=== PATIENT | female | born 1960 | race Caucasian/White ===

== ENCOUNTER 2017-05-17 13:19 | Inpatient (IN) | payer OTHER ==
[~2017-05-17] VITALS: Ht 162.6 cm; Wt 51.1 kg
[2017-05-17] MEDS ORDERED: PROPOFOL 100 ML IV ONE (17:02)
[2017-05-17 17:18] LABS: ABG COLLECTION SITE RIGHT RADIAL; COLLATERAL CIRCULATION TESTING NORMAL
[2017-05-17] MEDS ORDERED: BISACODYL 10 MG SUPP PR PRN (17:30)
[2017-05-17] MEDS ORDERED: POLYETHYLENE GLYCOL 17 GM PACKET PO PRN (17:30)
[2017-05-17] MEDS ORDERED: LABETALOL 5MG/ML, 20ML IVPush PRN (17:30)
[2017-05-17 17:43] VITALS: BP 127/81
[2017-05-17] MEDS ORDERED: PLEASE ENTER ALLERGIES MC SCH ×2 (18:00)
[2017-05-17] MEDS ORDERED: PLEASE ENTER HEIGHT AND WEIGHT MC SCH (18:00)
[2017-05-17 18:15] LABS: BLOOD UREA NITROGEN 10 mg/dL (7-18)
[2017-05-17] MEDS: SODIUM CHLORIDE 0.9% 1,000 ML IV SCH (18:20)
[2017-05-17 18:21] LABS: IS PT STATUS REG ER OR PRE ER? NO
[2017-05-17] MEDS ORDERED: MIDAZOLAM 1 MG/ML, 5ML ONE (18:26)
[2017-05-17] MEDS ORDERED: GADOBUTROL 10 MMOL/10 ML VIAL ONE (19:31)
[2017-05-17] MEDS ORDERED: PROPOFOL 100 ML IV PRN (19:55)
[2017-05-17] MEDS ORDERED: NOREPINEPHRINE 4 MG in SODIUM CHLORIDE 0.9% 246 ML IV PRN (19:55)
[2017-05-17 20:00] VITALS: BP 120/75
[2017-05-17] MEDS ORDERED: DEXTROSE 50%, 50ML SYRINGE IVPush PRN (20:00)
[2017-05-17] MEDS ORDERED: PHARMACY MAY ADJ FOR RENAL FX MC SCH (20:00)
[2017-05-17] MEDS ORDERED: GLUCAGON 1 MG IM PRN (20:00)
[2017-05-17] MEDS ORDERED: ALBUTEROL/IPRATROPIUM 2.5MG/0.5MG, 3 ML INLINE PRN (20:00)
[2017-05-17] MEDS ORDERED: LIDOCAINE-MPF 1%, 2ML ENDO PRN (20:00)
[2017-05-17] MEDS: SODIUM CHLORIDE FLUSH 10ML SYR IVF SCH (21:52)
[2017-05-17] MEDS: SIMVASTATIN 20 MG TABLET PO SCH (21:53)
[2017-05-17] MEDS: FAMOTIDINE 20 MG/2 ML IVPush SCH (22:46)
[2017-05-17 23:59] LABS: IS PT STATUS REG ER OR PRE ER? NO
[2017-05-18] MEDS: SODIUM CHLORIDE 0.9% 1,000 ML IV SCH ×2 (04:27→20:21)
[2017-05-18 05:01] LABS: ASPARTATE AMINO TRANSFERASE 14 U/L (15-37); BLOOD UREA NITROGEN 10 mg/dL (7-18)
[2017-05-18 05:06] LABS: ABG COLLECTION SITE RIGHT RADIAL; COLLATERAL CIRCULATION TESTING NORMAL
[2017-05-18] MEDS ORDERED: PHENYTOIN SODIUM 1,000 MG in SODIUM CHLORIDE 0.9% 80 ML IV ONE (06:00)
[2017-05-18] MEDS ORDERED: FILTER 0.22 MICRON IV ONE (06:30)
[2017-05-18] MEDS ORDERED: MAGNESIUM SULFATE PMX 2GM/50ML 50 ML IV ONE (07:00)
[2017-05-18] MEDS: POTASSIUM CHLORIDE 10% 40 MEQ/30 ML UDC PO SCH ×2 (08:35→20:54)
[2017-05-18] MEDS: SODIUM CHLORIDE FLUSH 10ML SYR IVF SCH ×2 (08:35→20:54)
[2017-05-18] MEDS: FAMOTIDINE 20 MG/2 ML IVPush SCH ×2 (08:56→20:54)
[2017-05-18] MEDS: SIMVASTATIN 20 MG TABLET PO SCH (20:54)
[2017-05-18] MEDS: PHENYTOIN SODIUM 50 MG/ML, 2ML IVPush SCH (20:55)
[2017-05-18] MEDS ORDERED: PHENYTOIN SODIUM 50 MG/ML, 5ML IVPush SCH (21:00)
[2017-05-19 04:43] LABS: BLOOD UREA NITROGEN 10 mg/dL (7-18)
[2017-05-19 04:46] LABS: ASPARTATE AMINO TRANSFERASE 14 U/L (15-37)
[2017-05-19 04:47] LABS: ABG COLLECTION SITE RIGHT RADIAL; COLLATERAL CIRCULATION TESTING NORMAL
[2017-05-19 04:55] VITALS: BP 120/73
[2017-05-19] MEDS ORDERED: POTASSIUM CHLORIDE 40 MEQ in SODIUM CHLORIDE 0.9% 100 ML IV ONE (05:00)
[2017-05-19] MEDS: SODIUM CHLORIDE 0.9% 1,000 ML IV SCH ×2 (06:35→17:39)
[2017-05-19] MEDS: SODIUM CHLORIDE FLUSH 10ML SYR IVF SCH ×2 (09:40→19:56)
[2017-05-19] MEDS: POTASSIUM CHLORIDE 10% 40 MEQ/30 ML UDC PO SCH ×2 (09:40→19:56)
[2017-05-19] MEDS: FAMOTIDINE 20 MG/2 ML IVPush SCH ×2 (09:40→19:57)
[2017-05-19] MEDS: SIMVASTATIN 20 MG TABLET PO SCH (19:56)
[2017-05-19] MEDS: PHENYTOIN SODIUM 50 MG/ML, 2ML IVPush SCH (19:56)
[2017-05-20] MEDS: SODIUM CHLORIDE 0.9% 1,000 ML IV SCH ×2 (04:28→18:00)
[2017-05-20 04:30] LABS: ABG COLLECTION SITE RIGHT RADIAL; COLLATERAL CIRCULATION TESTING NORMAL
[2017-05-20 04:51] VITALS: BP 122/70
[2017-05-20 07:20] LABS: BLOOD UREA NITROGEN 11 mg/dL (7-18)
[2017-05-20] MEDS: FAMOTIDINE 40 MG/5 ML ORAL SUSP NG SCH ×2 (09:59→20:24)
[2017-05-20] MEDS: SODIUM CHLORIDE FLUSH 10ML SYR IVF SCH ×2 (10:01→20:23)
[2017-05-20] MEDS: PHENYTOIN SODIUM 50 MG/ML, 2ML IVPush SCH (20:24)
[2017-05-20] MEDS: SIMVASTATIN 20 MG TABLET PO SCH (20:24)
[2017-05-21] MEDS: SODIUM CHLORIDE 0.9% 1,000 ML IV SCH (01:10)
[2017-05-21 04:07] VITALS: BP 131/63
[2017-05-21 04:18] LABS: ABG COLLECTION SITE NOT DOCUMENTED
[2017-05-21 04:37] LABS: BLOOD UREA NITROGEN 13 mg/dL (7-18)
[2017-05-21] MEDS ORDERED: POTASSIUM CHLORIDE 10% 40 MEQ/30 ML UDC PO ONE (07:00)
[2017-05-21] MEDS: FAMOTIDINE 40 MG/5 ML ORAL SUSP NG SCH ×2 (08:08→21:43)
[2017-05-21] MEDS: SODIUM CHLORIDE FLUSH 10ML SYR IVF SCH ×2 (08:08→21:42)
[2017-05-21] MEDS: PHENYTOIN SODIUM 50 MG/ML, 2ML IVPush SCH (21:42)
[2017-05-21] MEDS: SIMVASTATIN 20 MG TABLET PO SCH (21:43)
[2017-05-22 04:00] VITALS: BP 114/71
[2017-05-22 04:17] LABS: ABG COLLECTION SITE RIGHT RADIAL; COLLATERAL CIRCULATION TESTING NORMAL
[2017-05-22] MEDS: FAMOTIDINE 40 MG/5 ML ORAL SUSP NG SCH ×2 (09:29→21:14)
[2017-05-22] MEDS: SODIUM CHLORIDE FLUSH 10ML SYR IVF SCH ×2 (09:29→21:14)
[2017-05-22] MEDS ORDERED: RACEPINEPHRINE INH 2.25%, 0.5ML ONE (10:06)
[2017-05-22] MEDS ORDERED: DEXAMETHASONE 4 MG/ML, 1ML IVPush STA (10:08)
[2017-05-22 11:35] LABS: BLOOD UREA NITROGEN 15 mg/dL (7-18)
[2017-05-22] MEDS ORDERED: SUCCINYLCHOLINE 20 MG/ML, 10ML ONE (15:57)
[2017-05-22] MEDS ORDERED: MIDAZOLAM 1 MG/ML, 5ML ONE (15:57)
[2017-05-22] MEDS: DEXAMETHASONE 4 MG/ML, 1ML IVPush SCH ×2 (17:25→22:47)
[2017-05-22] MEDS: PHENYTOIN SODIUM 50 MG/ML, 2ML IVPush SCH (21:14)
[2017-05-22] MEDS: SIMVASTATIN 20 MG TABLET PO SCH (21:14)
[2017-05-22] MEDS: SODIUM CHLORIDE 0.9% 1,000 ML IV SCH (22:48)
[2017-05-23 04:00] VITALS: BP 99/57
[2017-05-23 04:14] LABS: ABG COLLECTION SITE RIGHT RADIAL; COLLATERAL CIRCULATION TESTING NORMAL
[2017-05-23] MEDS: DEXAMETHASONE 4 MG/ML, 1ML IVPush SCH ×4 (04:42→22:39)
[2017-05-23 07:59] LABS: BLOOD UREA NITROGEN 15 mg/dL (7-18)
[2017-05-23] MEDS: SODIUM CHLORIDE FLUSH 10ML SYR IVF SCH ×2 (09:53→21:06)
[2017-05-23] MEDS: FAMOTIDINE 40 MG/5 ML ORAL SUSP NG SCH ×2 (09:53→21:07)
[2017-05-23] MEDS: PHENYTOIN SODIUM 50 MG/ML, 2ML IVPush SCH (21:07)
[2017-05-23] MEDS: SIMVASTATIN 20 MG TABLET PO SCH (21:08)
[2017-05-23] MEDS ORDERED: SODIUM CHLORIDE 0.9% 1,000 ML IV ONE (22:00)
[2017-05-24 04:00] VITALS: BP 127/78
[2017-05-24 04:41] LABS: ABG COLLECTION SITE RIGHT RADIAL; COLLATERAL CIRCULATION TESTING NORMAL
[2017-05-24] MEDS: DEXAMETHASONE 4 MG/ML, 1ML IVPush SCH (05:16)
[2017-05-24 07:19] LABS: BLOOD UREA NITROGEN 26 mg/dL (7-18)
[2017-05-24] MEDS: SODIUM CHLORIDE FLUSH 10ML SYR IVF SCH ×2 (09:01→20:57)
[2017-05-24] MEDS: FAMOTIDINE 40 MG/5 ML ORAL SUSP NG SCH ×2 (09:01→20:58)
[2017-05-24] MEDS: SIMVASTATIN 20 MG TABLET PO SCH (20:58)
[2017-05-24] MEDS: PHENYTOIN SODIUM 50 MG/ML, 2ML IVPush SCH (20:59)
[2017-05-25 04:00] VITALS: BP 111/59
[2017-05-25 04:19] LABS: ABG COLLECTION SITE RIGHT RADIAL; COLLATERAL CIRCULATION TESTING NORMAL
[2017-05-25 04:57] LABS: BLOOD UREA NITROGEN 19 mg/dL (7-18)
[2017-05-25] MEDS ORDERED: MIDAZOLAM 1 MG/ML, 5ML ONE ×2 (08:00→15:43)
[2017-05-25] MEDS ORDERED: NORTRIPTYLINE 25 MG CAPSULE ONE (08:00)
[2017-05-25] MEDS: FAMOTIDINE 40 MG/5 ML ORAL SUSP NG SCH ×2 (08:45→20:30)
[2017-05-25] MEDS: SODIUM CHLORIDE FLUSH 10ML SYR IVF SCH ×2 (08:45→20:30)
[2017-05-25] MEDS ORDERED: RACEPINEPHRINE INH 2.25%, 0.5ML ONE (09:28)
[2017-05-25] MEDS ORDERED: RACEPINEPHRINE INH 2.25%, 0.5ML NPPB PRN (10:00)
[2017-05-25] MEDS ORDERED: LORazepam 2 MG/ML, 1ML ONE (10:00)
[2017-05-25] MEDS ORDERED: LORazepam 2 MG/ML, 1ML IVPush ONE (10:30)
[2017-05-25] MEDS ORDERED: RACEPINEPHRINE INH 2.25%, 0.5ML NPPB SCH (11:00)
[2017-05-25] MEDS: DEXAMETHASONE 4 MG/ML, 1ML IVPush SCH ×2 (13:03→18:26)
[2017-05-25] MEDS ORDERED: MIDAZOLAM 1 MG/ML, 2ML IVPush ONE (16:30)
[2017-05-25] MEDS: PHENYTOIN SODIUM 50 MG/ML, 2ML IVPush SCH (20:30)
[2017-05-25] MEDS: SIMVASTATIN 20 MG TABLET PO SCH (20:30)
[2017-05-26] MEDS: DEXAMETHASONE 4 MG/ML, 1ML IVPush SCH ×4 (01:14→19:41)
[2017-05-26] MEDS: FENTANYL PF 100 MCG/2ML IVPush PRN ×3 (01:56→23:00)
[2017-05-26 04:41] LABS: ABG COLLECTION SITE RIGHT RADIAL; COLLATERAL CIRCULATION TESTING NORMAL
[2017-05-26 04:56] VITALS: BP 114/64
[2017-05-26 07:33] LABS: BLOOD UREA NITROGEN 20 mg/dL (7-18)
[2017-05-26] MEDS: SODIUM CHLORIDE FLUSH 10ML SYR IVF SCH ×2 (07:42→21:00)
[2017-05-26] MEDS: FAMOTIDINE 40 MG/5 ML ORAL SUSP NG SCH ×2 (07:42→20:56)
[2017-05-26] MEDS ORDERED: CEFAZOLIN 1,000 MG ONE (15:59)
[2017-05-26] MEDS ORDERED: PROPOFOL 10 MG/ML, 20ML ONE (15:59)
[2017-05-26] MEDS ORDERED: ROCURONIUM 10 MG/ML ONE (15:59)
[2017-05-26] MEDS ORDERED: BUPIVACAINE/PF-EPI 0.5% 1:200K ONE (16:08)
[2017-05-26] MEDS ORDERED: FENTANYL PF 100 MCG/2ML ONE (16:19)
[2017-05-26] MEDS: SIMVASTATIN 20 MG TABLET PO SCH (20:57)
[2017-05-26] MEDS: PHENYTOIN SODIUM 50 MG/ML, 2ML IVPush SCH (20:57)
[2017-05-27] MEDS: DEXAMETHASONE 4 MG/ML, 1ML IVPush SCH ×3 (01:21→18:11)
[2017-05-27] MEDS: FENTANYL PF 100 MCG/2ML IVPush PRN ×4 (02:59→23:08)
[2017-05-27 04:20] VITALS: BP 106/60
[2017-05-27 04:33] LABS: ABG COLLECTION SITE RIGHT RADIAL; COLLATERAL CIRCULATION TESTING NORMAL
[2017-05-27 07:24] LABS: BLOOD UREA NITROGEN 24 mg/dL (7-18)
[2017-05-27] MEDS: FAMOTIDINE 40 MG/5 ML ORAL SUSP NG SCH ×2 (08:51→20:52)
[2017-05-27] MEDS: SODIUM CHLORIDE FLUSH 10ML SYR IVF SCH ×2 (08:51→20:52)
[2017-05-27] MEDS: SIMVASTATIN 20 MG TABLET PO SCH (20:52)
[2017-05-27] MEDS: PHENYTOIN SODIUM 50 MG/ML, 2ML IVPush SCH (20:52)
[2017-05-28 04:34] LABS: ABG COLLECTION SITE RIGHT RADIAL; COLLATERAL CIRCULATION TESTING NORMAL
[2017-05-28 04:39] VITALS: BP 108/86
[2017-05-28 04:40] LABS: BLOOD UREA NITROGEN 24 mg/dL (7-18)
[2017-05-28] MEDS: DEXAMETHASONE 4 MG/ML, 1ML IVPush SCH (07:40)
[2017-05-28] MEDS: FAMOTIDINE 40 MG/5 ML ORAL SUSP NG SCH ×2 (07:40→21:31)
[2017-05-28] MEDS: SODIUM CHLORIDE FLUSH 10ML SYR IVF SCH ×2 (07:40→21:31)
[2017-05-28] MEDS: PHENYTOIN SODIUM 50 MG/ML, 2ML IVPush SCH (21:31)
[2017-05-28] MEDS: SIMVASTATIN 20 MG TABLET PO SCH (21:32)
[2017-05-29 04:32] LABS: BLOOD UREA NITROGEN 22 mg/dL (7-18)
[2017-05-29 04:37] VITALS: BP 124/73
[2017-05-29] MEDS ORDERED: CEFAZOLIN PMX 2GM/50ML 50 ML IVPB ONE ×2 (06:00→14:00)
[2017-05-29] MEDS: SODIUM CHLORIDE FLUSH 10ML SYR IVF SCH ×2 (09:16→21:21)
[2017-05-29] MEDS: FAMOTIDINE 40 MG/5 ML ORAL SUSP NG SCH ×2 (09:16→21:21)
[2017-05-29] MEDS ORDERED: MIDAZOLAM 1 MG/ML, 5ML ONE (10:56)
[2017-05-29] MEDS: SIMVASTATIN 20 MG TABLET PO SCH (21:21)
[2017-05-29] MEDS: PHENYTOIN SODIUM 50 MG/ML, 2ML IVPush SCH (21:21)
[2017-05-30 04:00] VITALS: BP 101/62
[2017-05-30 04:25] LABS: BLOOD UREA NITROGEN 24 mg/dL (7-18)
[2017-05-30] MEDS: ALBUTEROL/IPRATROPIUM 2.5MG/0.5MG, 3 ML INLINE PRN ×2 (06:51→10:30)
[2017-05-30] MEDS: SODIUM CHLORIDE FLUSH 10ML SYR IVF SCH (09:55)
[2017-05-30] MEDS: FAMOTIDINE 40 MG/5 ML ORAL SUSP NG SCH (09:55)
[2017-05-30] MEDS ORDERED: IPRA3AMP INLINE (10:59)
[2017-05-30] MEDS ORDERED: PHEN100C PO (10:59)
[2017-05-30] MEDS ORDERED: SIMV20TA3 PO (10:59)
[2017-05-30] MEDS ORDERED: LIDO10VI34 ENDO (10:59)
[2017-05-30] MEDS ORDERED: FAMO40OR NG (10:59)
== END 2017-05-30 14:19 | DRG 4 ==
LOC: CCU 16:39
PROVIDERS: ADMIT Hospitalist; ATTEND Hospitalist
PROC: 0BH17EZ Insertion of Endotracheal Airway into Trachea, Via Natural or Artificial Opening (ICD-10-PCS; 2017-05-17)
PROC: 5A1955Z Respiratory Ventilation, Greater than 96 Consecutive Hours (ICD-10-PCS; 2017-05-17)
PROC: 0T9B70Z Drainage of Bladder with Drainage Device, Via Natural or Artificial Opening (ICD-10-PCS; 2017-05-17)
PROC: 0B110F4 Bypass Trachea to Cutaneous with Tracheostomy Device, Open Approach (ICD-10-PCS; principal; 2017-05-26 16:00)
PROC: 0DH63UZ Insertion of Feeding Device into Stomach, Percutaneous Approach (ICD-10-PCS; 2017-05-29)
DX: I61.8 Other nontraumatic intracerebral hemorrhage (principal); G93.40 Encephalopathy, unspecified; J96.00 Acute respiratory failure, unspecified whether with hypoxia or hypercapnia; Z99.11 Dependence on respirator [ventilator] status; C53.9 Malignant neoplasm of cervix uteri, unspecified; R23.3 Spontaneous ecchymoses; D64.9 Anemia, unspecified; R13.12 Dysphagia, oropharyngeal phase; K29.70 Gastritis, unspecified, without bleeding; K29.80 Duodenitis without bleeding; Z83.3 Family history of diabetes mellitus; Z82.49 Family history of ischemic heart disease and other diseases of the circulatory system
CPT/HCPCS: 36415; 36600; 70450; 70490; 70546; 70547; 70553; 71010; 80048; 80053; 80061; 80185; 80186; 81001; 82803; 83735; 84439; 84443; 84478; 84484; 85025; 85610; 85651; 87040; 87070; 87081; 87205; 93005; 93306; 94002; 94003; 94150; 94640; 94660; 95816; 95819; 99152; 99153; A9585; B4087; J0690; J1100; J1165; J2250; J2704; J3010; J3480; J7620; 92523-GN; J0330; J2060; J3475; J7030; S0028

== ENCOUNTER 2017-06-09 15:44 | Inpatient (IN) | payer OTHER ==
[~2017-06-09] VITALS: Ht 162.6 cm; Wt 52.9 kg
[~2017-06-09 15:44] MED LIST: FAMO40OR5 NG; IPRA3AMP INLINE; LIDO10VI34 ENDO; PHEN100C PO; SIMV20TA3 PO
[2017-06-09 16:11] VITALS: BP 106/76
[2017-06-09] MEDS ORDERED: LIDOCAINE-MPF 1%, 2ML ENDO PRN (17:30)
[2017-06-09] MEDS ORDERED: ALBUTEROL/IPRATROPIUM 2.5MG/0.5MG, 3 ML INLINE PRN (17:30)
[2017-06-09] MEDS: SODIUM CHLORIDE 0.9% 1,000 ML IV SCH (18:11)
[2017-06-09] MEDS: CEFTRIAXONE PMX 1GM/50ML 50 ML IV SCH (18:46)
[2017-06-09 19:31] LABS: ASPARTATE AMINO TRANSFERASE 52 U/L (15-37); BLOOD UREA NITROGEN 26 mg/dL (7-18)
[2017-06-09 19:46] LABS: HEMOGLOBIN 10.8 g/dL (11.7-16.4); WHITE BLOOD COUNT 3.7 x10^3/uL (3.4-10)
[2017-06-09 20:18] VITALS: BP 99/63
[2017-06-09 20:41] LABS: DIFF TOTAL CELLS COUNTED 100 CELL DIFF
[2017-06-09 20:44] LABS: VERIFY COUNTS? YES
[2017-06-09] MEDS: FAMOTIDINE 40 MG/5 ML ORAL SUSP NG SCH (21:51)
[2017-06-09] MEDS: SIMVASTATIN 20 MG TABLET PO SCH (21:51)
[2017-06-09] MEDS: PHENYTOIN 125 MG/5 ML ORAL SUSP PO SCH (21:52)
[2017-06-09 21:55] VITALS: BP 103/67
[2017-06-10 01:37] VITALS: BP 96/61
[2017-06-10 05:42] LABS: HEMATOCRIT 28.6 % (34.6-47.8); HEMOGLOBIN 9.7 g/dL (11.7-16.4); WHITE BLOOD COUNT 3.4 x10^3/uL (3.4-10)
[2017-06-10 05:51] LABS: BLOOD UREA NITROGEN 25 mg/dL (7-18)
[2017-06-10 06:26] VITALS: BP 99/63
[2017-06-10] MEDS: SODIUM CHLORIDE 0.9% 1,000 ML IV SCH ×2 (06:28→20:15)
[2017-06-10] MEDS ORDERED: DILT180C70 PEG (06:47)
[2017-06-10] MEDS ORDERED: PROP50TA3 PO (06:47)
[2017-06-10] MEDS ORDERED: LOPE2CAP PO (06:47)
[2017-06-10] MEDS ORDERED: WARF3TAB PO (06:47)
[2017-06-10] MEDS ORDERED: LACT1CAP20 PEG (06:47)
[2017-06-10] MEDS ORDERED: CARV3.12 PEG (06:47)
[2017-06-10] MEDS ORDERED: FURO40TA6 PO (06:47)
[2017-06-10] MEDS ORDERED: POTA10TA6 PO (06:47)
[2017-06-10] MEDS ORDERED: CEFT2FRO2 IV (06:47)
[2017-06-10] MEDS: FAMOTIDINE 40 MG/5 ML ORAL SUSP NG SCH ×2 (09:55→21:14)
[2017-06-10] MEDS: PHENYTOIN 125 MG/5 ML ORAL SUSP PO SCH ×3 (09:55→22:16)
[2017-06-10 12:54] VITALS: BP 106/71
[2017-06-10] MEDS: CEFTRIAXONE PMX 1GM/50ML 50 ML IV SCH (17:17)
[2017-06-10 19:00] VITALS: BP 114/68
[2017-06-10] MEDS: SIMVASTATIN 20 MG TABLET PO SCH (21:13)
[2017-06-11 01:35] VITALS: BP 98/60
[2017-06-11 07:02] VITALS: BP 106/67
[2017-06-11] MEDS: FAMOTIDINE 40 MG/5 ML ORAL SUSP NG SCH ×2 (08:39→21:19)
[2017-06-11] MEDS: PHENYTOIN 125 MG/5 ML ORAL SUSP PO SCH ×3 (08:39→21:19)
[2017-06-11] MEDS: SODIUM CHLORIDE 0.9% 1,000 ML IV SCH ×2 (08:39→22:16)
[2017-06-11 11:15] LABS: HEMATOCRIT 28.9 % (34.6-47.8); HEMOGLOBIN 9.7 g/dL (11.7-16.4); WHITE BLOOD COUNT 3.4 x10^3/uL (3.4-10)
[2017-06-11 11:29] LABS: BLOOD UREA NITROGEN 19 mg/dL (7-18)
[2017-06-11 11:33] LABS: ASPARTATE AMINO TRANSFERASE 99 U/L (15-37)
[2017-06-11] MEDS ORDERED: OMNIPAQUE 350 MG/ML, 150 ML BOTTLE ONE (11:55)
[2017-06-11 13:00] VITALS: BP 109/68
[2017-06-11] MEDS: CEFTRIAXONE PMX 1GM/50ML 50 ML IV SCH (18:19)
[2017-06-11 20:45] VITALS: BP 121/76
[2017-06-11] MEDS: SIMVASTATIN 20 MG TABLET PO SCH (21:19)
[2017-06-12 01:41] VITALS: BP 122/70
[2017-06-12 06:52] VITALS: BP 121/76
[2017-06-12] MEDS: FAMOTIDINE 40 MG/5 ML ORAL SUSP NG SCH ×2 (09:13→21:12)
[2017-06-12] MEDS: PHENYTOIN 125 MG/5 ML ORAL SUSP PO SCH ×3 (09:13→21:11)
[2017-06-12] MEDS: SODIUM CHLORIDE 0.9% 1,000 ML IV SCH (12:57)
[2017-06-12 13:23] VITALS: BP 117/81
[2017-06-12] MEDS: CEFTRIAXONE PMX 1GM/50ML 50 ML IV SCH (18:25)
[2017-06-12 19:03] VITALS: BP 115/75
[2017-06-12] MEDS: SIMVASTATIN 20 MG TABLET PO SCH (21:12)
[2017-06-13] MEDS: SODIUM CHLORIDE 0.9% 1,000 ML IV SCH ×2 (01:17→14:31)
[2017-06-13 03:00] VITALS: BP 108/68
[2017-06-13] MEDS: AMPICILLIN 1 GM in SODIUM CHLORIDE 0.9% 50 ML IV SCH ×4 (04:30→21:18)
[2017-06-13] MEDS: ACETAMINOPHEN 325 MG TABLET PO PRN ×2 (04:30→17:09)
[2017-06-13 06:37] VITALS: BP 122/77
[2017-06-13] MEDS: FAMOTIDINE 40 MG/5 ML ORAL SUSP NG SCH ×2 (09:25→21:09)
[2017-06-13] MEDS: PHENYTOIN 125 MG/5 ML ORAL SUSP PO SCH ×3 (09:25→21:09)
[2017-06-13 12:34] VITALS: BP 120/72
[2017-06-13] MEDS ORDERED: ACETAMINOPHEN 650 MG/20.3 ML UDC ONE (17:07)
[2017-06-13] MEDS: CEFTRIAXONE PMX 1GM/50ML 50 ML IV SCH (18:24)
[2017-06-13 19:04] VITALS: BP 96/61
[2017-06-13] MEDS: SIMVASTATIN 20 MG TABLET PO SCH (21:09)
[2017-06-14 00:53] VITALS: BP 108/70
[2017-06-14] MEDS: SODIUM CHLORIDE 0.9% 1,000 ML IV SCH ×2 (01:26→16:02)
[2017-06-14] MEDS: AMPICILLIN 1 GM in SODIUM CHLORIDE 0.9% 50 ML IV SCH ×3 (03:33→16:02)
[2017-06-14] MEDS: FAMOTIDINE 40 MG/5 ML ORAL SUSP NG SCH ×2 (08:34→22:08)
[2017-06-14] MEDS: PHENYTOIN 125 MG/5 ML ORAL SUSP PO SCH ×3 (08:34→22:08)
[2017-06-14 08:45] VITALS: BP 105/69
[2017-06-14 08:56] LABS: HEMATOCRIT 26.1 % (34.6-47.8); HEMOGLOBIN 8.7 g/dL (11.7-16.4); WHITE BLOOD COUNT 5.4 x10^3/uL (3.4-10)
[2017-06-14 09:04] LABS: BLOOD UREA NITROGEN 12 mg/dL (7-18)
[2017-06-14 09:07] LABS: ASPARTATE AMINO TRANSFERASE 50 U/L (15-37)
[2017-06-14 13:45] VITALS: BP 109/73
[2017-06-14] MEDS: PIPERACILLIN/TAZO/PMX 3.375GM 50 ML IV SCH (18:06)
[2017-06-14 18:59] VITALS: BP 113/69
[2017-06-14 21:57] VITALS: BP 103/61
[2017-06-14] MEDS: SIMVASTATIN 20 MG TABLET PO SCH (22:07)
[2017-06-15] MEDS: PIPERACILLIN/TAZO/PMX 3.375GM 50 ML IV SCH ×5 (00:05→23:55)
[2017-06-15 03:30] VITALS: BP 103/58
[2017-06-15 05:56] LABS: HEMATOCRIT 25.3 % (34.6-47.8); HEMOGLOBIN 8.5 g/dL (11.7-16.4); WHITE BLOOD COUNT 5.3 x10^3/uL (3.4-10)
[2017-06-15] MEDS: SODIUM CHLORIDE 0.9% 1,000 ML IV SCH ×2 (06:01→21:43)
[2017-06-15 06:25] LABS: BLOOD UREA NITROGEN 10 mg/dL (7-18)
[2017-06-15] MEDS: FAMOTIDINE 40 MG/5 ML ORAL SUSP NG SCH ×2 (08:31→21:42)
[2017-06-15] MEDS: PHENYTOIN 125 MG/5 ML ORAL SUSP PO SCH ×3 (08:31→21:43)
[2017-06-15 08:45] VITALS: BP 103/71
[2017-06-15 13:26] VITALS: BP 98/67
[2017-06-15 19:56] VITALS: BP 101/65
[2017-06-15] MEDS: SIMVASTATIN 20 MG TABLET PO SCH (21:42)
[2017-06-16 01:16] VITALS: BP 99/58
[2017-06-16] MEDS: PIPERACILLIN/TAZO/PMX 3.375GM 50 ML IV SCH ×3 (05:50→19:02)
[2017-06-16 06:50] VITALS: BP 101/65
[2017-06-16] MEDS: PHENYTOIN 125 MG/5 ML ORAL SUSP PO SCH ×3 (11:09→21:30)
[2017-06-16] MEDS: FAMOTIDINE 40 MG/5 ML ORAL SUSP NG SCH ×2 (11:09→21:30)
[2017-06-16] MEDS: SODIUM CHLORIDE 0.9% 1,000 ML IV SCH (12:45)
[2017-06-16 14:20] VITALS: BP 103/68
[2017-06-16 20:00] VITALS: BP 112/74
[2017-06-16] MEDS: SIMVASTATIN 20 MG TABLET PO SCH (21:31)
[2017-06-17] MEDS: PIPERACILLIN/TAZO/PMX 3.375GM 50 ML IV SCH ×4 (00:17→20:35)
[2017-06-17 00:36] VITALS: BP 109/70
[2017-06-17] MEDS: SODIUM CHLORIDE 0.9% 1,000 ML IV SCH ×2 (03:31→20:36)
[2017-06-17 06:16] LABS: HEMOGLOBIN 8.4 g/dL (11.7-16.4); WHITE BLOOD COUNT 3.5 x10^3/uL (3.4-10)
[2017-06-17 06:22] LABS: BLOOD UREA NITROGEN 11 mg/dL (7-18)
[2017-06-17 06:25] LABS: ASPARTATE AMINO TRANSFERASE 388 U/L (15-37)
[2017-06-17 06:57] VITALS: BP 98/57
[2017-06-17] MEDS ORDERED: LIDOCAINE 1%, 20ML ONE ×2 (07:17→07:25)
[2017-06-17] MEDS ORDERED: MIDAZOLAM 1 MG/ML, 5ML ONE (07:19)
[2017-06-17] MEDS ORDERED: FENTANYL PF 100 MCG/2ML ONE (07:19)
[2017-06-17] MEDS ORDERED: FLUMAZENIL 0.1 MG/1 ML, 5ML ONE (07:19)
[2017-06-17] MEDS ORDERED: NALOXONE 1 MG/ML, 2ML ONE (07:19)
[2017-06-17] MEDS: PHENYTOIN 125 MG/5 ML ORAL SUSP PO SCH ×3 (09:00→21:00)
[2017-06-17] MEDS: FAMOTIDINE 40 MG/5 ML ORAL SUSP NG SCH ×2 (09:00→21:00)
[2017-06-17 14:33] VITALS: BP 115/58
[2017-06-17] MEDS ORDERED: OPIUM/BELLADONNA SUPP.RECT 16.2-60 MG PR PRN (17:00)
[2017-06-17] MEDS ORDERED: VANCOMYCIN PER PHARMACY MC PRN (17:00)
[2017-06-17] MEDS ORDERED: PHARMACOKINETIC MONITORING MC PRN (17:30)
[2017-06-17] MEDS: VANCOMYCIN 1,200 MG in SODIUM CHLORIDE 0.9% 250 ML IV SCH (18:35)
[2017-06-17 20:25] VITALS: BP 106/66
[2017-06-17] MEDS: SIMVASTATIN 20 MG TABLET PO SCH (21:00)
[2017-06-18] MEDS: PIPERACILLIN/TAZO/PMX 3.375GM 50 ML IV SCH ×4 (02:42→20:03)
[2017-06-18 02:47] VITALS: BP 113/62
[2017-06-18 05:28] LABS: HEMATOCRIT 23.5 % (34.6-47.8); WHITE BLOOD COUNT 3.2 x10^3/uL (3.4-10)
[2017-06-18 05:39] LABS: BLOOD UREA NITROGEN 6 mg/dL (7-18)
[2017-06-18 07:32] VITALS: BP 103/58
[2017-06-18] MEDS: SODIUM CHLORIDE 0.9% 1,000 ML IV SCH (10:36)
[2017-06-18] MEDS: FAMOTIDINE 40 MG/5 ML ORAL SUSP NG SCH ×2 (10:37→21:35)
[2017-06-18] MEDS: PHENYTOIN 125 MG/5 ML ORAL SUSP PO SCH ×3 (10:37→21:35)
[2017-06-18] MEDS: VANCOMYCIN 1,200 MG in SODIUM CHLORIDE 0.9% 250 ML IV SCH (12:00)
[2017-06-18 13:45] VITALS: BP 103/63
[2017-06-18] MEDS ORDERED: DEXTROSE 50%, 50ML SYRINGE IVPush ONE (14:30)
[2017-06-18 20:07] VITALS: BP 110/67
[2017-06-18] MEDS: SIMVASTATIN 20 MG TABLET PO SCH (21:35)
[2017-06-19] MEDS: PIPERACILLIN/TAZO/PMX 3.375GM 50 ML IV SCH ×3 (02:01→14:32)
[2017-06-19 02:20] VITALS: BP 99/53
[2017-06-19] MEDS: SODIUM CHLORIDE 0.9% 1,000 ML IV SCH (05:16)
[2017-06-19] MEDS: VANCOMYCIN 1,200 MG in SODIUM CHLORIDE 0.9% 250 ML IV SCH (05:24)
[2017-06-19 09:00] VITALS: BP 114/73
[2017-06-19] MEDS: PHENYTOIN 125 MG/5 ML ORAL SUSP PO SCH ×3 (10:16→23:37)
[2017-06-19] MEDS: FAMOTIDINE 40 MG/5 ML ORAL SUSP NG SCH ×2 (10:16→22:38)
[2017-06-19 12:57] VITALS: BP 108/68
[2017-06-19 19:10] VITALS: BP 105/67
[2017-06-19] MEDS: SIMVASTATIN 20 MG TABLET PO SCH (22:38)
[2017-06-20] MEDS: PIPERACILLIN/TAZO/PMX 3.375GM 50 ML IV SCH ×4 (00:22→21:34)
[2017-06-20] MEDS: SODIUM CHLORIDE 0.9% 1,000 ML IV SCH ×2 (00:22→09:57)
[2017-06-20] MEDS: VANCOMYCIN 1,200 MG in SODIUM CHLORIDE 0.9% 250 ML IV SCH (00:56)
[2017-06-20 03:08] VITALS: BP 112/70
[2017-06-20 05:16] LABS: HEMATOCRIT 25.1 % (34.6-47.8); HEMOGLOBIN 8.4 g/dL (11.7-16.4); WHITE BLOOD COUNT 3.9 x10^3/uL (3.4-10)
[2017-06-20 05:30] LABS: BLOOD UREA NITROGEN 10 mg/dL (7-18)
[2017-06-20 08:00] VITALS: BP 106/67
[2017-06-20] MEDS: PHENYTOIN 125 MG/5 ML ORAL SUSP PO SCH ×3 (09:56→21:34)
[2017-06-20] MEDS: FAMOTIDINE 40 MG/5 ML ORAL SUSP NG SCH ×2 (09:56→21:34)
[2017-06-20 12:29] VITALS: BP 132/75
[2017-06-20] MEDS: POTASSIUM CHLORIDE 10% 40 MEQ/30 ML UDC PO SCH ×2 (16:46→21:34)
[2017-06-20] MEDS: VANCOMYCIN PMX 1GM/200ML 200 ML IV SCH (17:59)
[2017-06-20 20:46] VITALS: BP 114/71
[2017-06-20] MEDS: SIMVASTATIN 20 MG TABLET PO SCH (21:35)
[2017-06-21 01:59] VITALS: BP 129/79
[2017-06-21] MEDS: PIPERACILLIN/TAZO/PMX 3.375GM 50 ML IV SCH ×4 (03:52→21:37)
[2017-06-21 05:12] LABS: HEMATOCRIT 26.7 % (34.6-47.8); HEMOGLOBIN 8.9 g/dL (11.7-16.4); WHITE BLOOD COUNT 3.9 x10^3/uL (3.4-10)
[2017-06-21 05:26] LABS: BLOOD UREA NITROGEN 8 mg/dL (7-18)
[2017-06-21 05:32] LABS: ASPARTATE AMINO TRANSFERASE 68 U/L (15-37)
[2017-06-21] MEDS: VANCOMYCIN PMX 1GM/200ML 200 ML IV SCH ×2 (06:26→17:13)
[2017-06-21 08:20] VITALS: BP 122/77
[2017-06-21] MEDS: PHENYTOIN 125 MG/5 ML ORAL SUSP PO SCH ×3 (08:49→21:37)
[2017-06-21] MEDS: POTASSIUM CHLORIDE 10% 40 MEQ/30 ML UDC PO SCH (08:49)
[2017-06-21] MEDS: FAMOTIDINE 40 MG/5 ML ORAL SUSP NG SCH ×2 (08:49→21:37)
[2017-06-21] MEDS: POTASSIUM ACID PHOSPHATE 500 MG TABLET.SOL PEG SCH ×3 (10:02→21:35)
[2017-06-21 12:01] VITALS: BP 129/80
[2017-06-21 20:45] VITALS: BP 118/78
[2017-06-21] MEDS: SIMVASTATIN 20 MG TABLET PO SCH (21:36)
[2017-06-22 02:20] VITALS: BP 122/77
[2017-06-22] MEDS: PIPERACILLIN/TAZO/PMX 3.375GM 50 ML IV SCH ×4 (03:28→21:47)
[2017-06-22] MEDS: POTASSIUM ACID PHOSPHATE 500 MG TABLET.SOL PEG SCH (04:26)
[2017-06-22 04:59] LABS: HEMATOCRIT 28.5 % (34.6-47.8); HEMOGLOBIN 9.4 g/dL (11.7-16.4); WHITE BLOOD COUNT 4.3 x10^3/uL (3.4-10)
[2017-06-22 05:12] LABS: BLOOD UREA NITROGEN 10 mg/dL (7-18)
[2017-06-22 05:15] LABS: ASPARTATE AMINO TRANSFERASE 65 U/L (15-37)
[2017-06-22] MEDS: VANCOMYCIN PMX 1GM/200ML 200 ML IV SCH ×2 (06:23→18:22)
[2017-06-22 06:37] VITALS: BP 113/70
[2017-06-22] MEDS: FAMOTIDINE 40 MG/5 ML ORAL SUSP NG SCH ×2 (09:02→21:47)
[2017-06-22] MEDS: PHENYTOIN 125 MG/5 ML ORAL SUSP PO SCH ×3 (09:02→21:48)
[2017-06-22 14:00] VITALS: BP 120/75
[2017-06-22] MEDS ORDERED: PHARMACOKINETIC MONITORING MC PRN (15:00)
[2017-06-22] MEDS ORDERED: VANCOMYCIN PER PHARMACY MC PRN (15:00)
[2017-06-22] MEDS ORDERED: ACETAMINOPHEN 325 MG TABLET PO PRN (15:00)
[2017-06-22 19:46] VITALS: BP 112/76
[2017-06-22] MEDS: SIMVASTATIN 20 MG TABLET PO SCH (21:48)
[2017-06-23 01:42] VITALS: BP 121/79
[2017-06-23] MEDS: PIPERACILLIN/TAZO/PMX 3.375GM 50 ML IV SCH ×4 (03:29→20:58)
[2017-06-23 05:01] LABS: HEMATOCRIT 30.6 % (34.6-47.8); HEMOGLOBIN 10.2 g/dL (11.7-16.4); WHITE BLOOD COUNT 4.6 x10^3/uL (3.4-10)
[2017-06-23] MEDS: VANCOMYCIN PMX 1GM/200ML 200 ML IV SCH ×3 (06:18→18:44)
[2017-06-23 06:24] LABS: ASPARTATE AMINO TRANSFERASE 47 U/L (15-37); BLOOD UREA NITROGEN 16 mg/dL (7-18)
[2017-06-23 07:13] VITALS: BP 120/78
[2017-06-23] MEDS: FAMOTIDINE 40 MG/5 ML ORAL SUSP NG SCH ×2 (09:39→20:33)
[2017-06-23] MEDS: PHENYTOIN 125 MG/5 ML ORAL SUSP PO SCH ×3 (09:39→20:33)
[2017-06-23 12:44] VITALS: BP 107/70
[2017-06-23 19:50] VITALS: BP 115/69
[2017-06-23] MEDS: SIMVASTATIN 20 MG TABLET PO SCH (21:50)
[2017-06-24 02:30] VITALS: BP 115/77
[2017-06-24] MEDS: PIPERACILLIN/TAZO/PMX 3.375GM 50 ML IV SCH ×4 (03:13→21:42)
[2017-06-24 05:08] LABS: HEMOGLOBIN 10.5 g/dL (11.7-16.4); WHITE BLOOD COUNT 5.5 x10^3/uL (3.4-10)
[2017-06-24 05:21] LABS: BLOOD UREA NITROGEN 18 mg/dL (7-18)
[2017-06-24] MEDS: VANCOMYCIN PMX 1GM/200ML 200 ML IV SCH ×2 (06:22→18:17)
[2017-06-24 07:01] VITALS: BP 116/76
[2017-06-24] MEDS: FAMOTIDINE 40 MG/5 ML ORAL SUSP NG SCH ×2 (09:12→21:00)
[2017-06-24] MEDS: PHENYTOIN 125 MG/5 ML ORAL SUSP PO SCH ×3 (09:13→21:42)
[2017-06-24 12:45] VITALS: BP 110/72
[2017-06-24 19:47] VITALS: BP 97/62
[2017-06-24] MEDS: SIMVASTATIN 20 MG TABLET PO SCH (21:42)
[2017-06-25 01:19] VITALS: BP 102/66
[2017-06-25] MEDS: PIPERACILLIN/TAZO/PMX 3.375GM 50 ML IV SCH ×4 (04:14→21:30)
[2017-06-25] MEDS: VANCOMYCIN PMX 1GM/200ML 200 ML IV SCH ×2 (06:19→18:21)
[2017-06-25 07:30] VITALS: BP 109/73
[2017-06-25] MEDS: FAMOTIDINE 40 MG/5 ML ORAL SUSP NG SCH ×2 (09:35→22:22)
[2017-06-25] MEDS: PHENYTOIN 125 MG/5 ML ORAL SUSP PO SCH ×3 (09:35→22:22)
[2017-06-25 14:39] VITALS: BP 114/78
[2017-06-25 20:03] VITALS: BP 104/71
[2017-06-25] MEDS: SIMVASTATIN 20 MG TABLET PO SCH (22:22)
[2017-06-26 02:22] VITALS: BP 120/71
[2017-06-26] MEDS: PIPERACILLIN/TAZO/PMX 3.375GM 50 ML IV SCH ×2 (04:29→12:40)
[2017-06-26] MEDS: VANCOMYCIN PMX 1GM/200ML 200 ML IV SCH (06:06)
[2017-06-26 08:14] VITALS: BP 126/75
[2017-06-26] MEDS: FAMOTIDINE 40 MG/5 ML ORAL SUSP NG SCH (09:11)
[2017-06-26] MEDS: PHENYTOIN 125 MG/5 ML ORAL SUSP PO SCH ×2 (09:11→15:42)
[2017-06-26 14:41] VITALS: BP 128/79
[2017-06-26 19:32] VITALS: BP 122/74
[2017-06-26] MEDS ORDERED: PHENYTOIN 100 MG CAPSULE PO SCH (21:00)
[2017-06-26] MEDS: FAMOTIDINE 20 MG TABLET PO SCH (21:16)
[2017-06-26] MEDS: PHENYTOIN 100 MG CAPSULE PO SCH (21:16)
[2017-06-26] MEDS: SIMVASTATIN 20 MG TABLET PO SCH (21:16)
[2017-06-27 01:31] VITALS: BP 127/78
[2017-06-27 07:40] VITALS: BP 115/74
[2017-06-27] MEDS: FAMOTIDINE 20 MG TABLET PO SCH ×2 (09:13→21:43)
[2017-06-27] MEDS: PHENYTOIN 100 MG CAPSULE PO SCH ×3 (09:14→21:43)
[2017-06-27] MEDS ORDERED: OPIU1SUP PR (11:53)
[2017-06-27 13:30] VITALS: BP 118/71
[2017-06-27 19:31] VITALS: BP 121/81
[2017-06-27] MEDS: SIMVASTATIN 20 MG TABLET PO SCH (21:43)
[2017-06-28 02:00] VITALS: BP 130/80
[2017-06-28 06:05] LABS: HEMOGLOBIN 10.3 g/dL (11.7-16.4)
[2017-06-28 06:16] LABS: BLOOD UREA NITROGEN 20 mg/dL (7-18)
[2017-06-28 07:36] VITALS: BP 119/77
[2017-06-28] MEDS: FAMOTIDINE 20 MG TABLET PO SCH ×2 (08:26→21:38)
[2017-06-28] MEDS: PHENYTOIN 100 MG CAPSULE PO SCH ×3 (08:26→21:38)
[2017-06-28] MEDS: LORazepam 0.5MG TABLET PO SCH ×2 (08:26→21:38)
[2017-06-28 13:48] VITALS: BP 111/75
[2017-06-28 20:30] VITALS: BP 114/78
[2017-06-28] MEDS: SIMVASTATIN 20 MG TABLET PO SCH (21:38)
[2017-06-29 02:45] VITALS: BP 112/73
[2017-06-29 07:49] VITALS: BP 124/80
[2017-06-29] MEDS: PHENYTOIN 100 MG CAPSULE PO SCH ×3 (09:55→21:13)
[2017-06-29] MEDS: LORazepam 0.5MG TABLET PO SCH ×2 (09:55→21:12)
[2017-06-29] MEDS: FAMOTIDINE 20 MG TABLET PO SCH ×2 (09:55→21:13)
[2017-06-29 14:04] VITALS: BP 119/73
[2017-06-29 20:00] VITALS: BP 136/84
[2017-06-29] MEDS ORDERED: ACETAMINOPHEN 325 MG TABLET PO PRN (20:30)
[2017-06-29] MEDS ORDERED: PHARMACOKINETIC MONITORING MC PRN (20:30)
[2017-06-29] MEDS ORDERED: OPIUM/BELLADONNA SUPP.RECT 16.2-60 MG PR PRN (20:30)
[2017-06-29] MEDS: SIMVASTATIN 20 MG TABLET PO SCH (21:13)
[2017-06-30 02:00] VITALS: BP 127/79
[2017-06-30 07:01] VITALS: BP 129/79
[2017-06-30] MEDS: LORazepam 0.5MG TABLET PO SCH (07:57)
[2017-06-30] MEDS: PHENYTOIN 100 MG CAPSULE PO SCH (07:57)
[2017-06-30] MEDS: FAMOTIDINE 20 MG TABLET PO SCH (07:57)
[2017-06-30 12:11] VITALS: BP 121/83
== END 2017-06-30 13:25 | DRG 166 ==
LOC: 4EST 16:01
PROVIDERS: ADMIT Internal Medicine; ATTEND Hospitalist
PROC: 06H03DZ Insertion of Intraluminal Device into Inferior Vena Cava, Percutaneous Approach (ICD-10-PCS; principal; 2017-06-09)
PROC: 0T9B70Z Drainage of Bladder with Drainage Device, Via Natural or Artificial Opening (ICD-10-PCS; 2017-06-09)
DX: J95.00 Unspecified tracheostomy complication (principal); E43 Unspecified severe protein-calorie malnutrition; Z99.11 Dependence on respirator [ventilator] status; I82.412 Acute embolism and thrombosis of left femoral vein; L03.116 Cellulitis of left lower limb; M48.54XA Collapsed vertebra, not elsewhere classified, thoracic region, initial encounter for fracture; Z93.1 Gastrostomy status; I82.422 Acute embolism and thrombosis of left iliac vein; N39.0 Urinary tract infection, site not specified; C67.9 Malignant neoplasm of bladder, unspecified; B95.2 Enterococcus as the cause of diseases classified elsewhere; I10 Essential (primary) hypertension; B96.4 Proteus (mirabilis) (morganii) as the cause of diseases classified elsewhere; E87.6 Hypokalemia; D64.9 Anemia, unspecified; Y83.8 Other surgical procedures as the cause of abnormal reaction of the patient, or of later complication, without mention of misadventure at the time of the procedure; M85.80 Other specified disorders of bone density and structure, unspecified site; N32.89 Other specified disorders of bladder; Z66 Do not resuscitate; Z83.3 Family history of diabetes mellitus; Z85.41 Personal history of malignant neoplasm of cervix uteri; Z86.73 Personal history of transient ischemic attack (TIA), and cerebral infarction without residual deficits; Z79.899 Other long term (current) drug therapy; Z68.20 Body mass index [BMI] 20.0-20.9, adult
CPT/HCPCS: 36415; 37191; 74178; 74230; 76937; 80048; 80053; 80202; 81001; 82040; 82962; 83735; 84100; 85025; 87077; 87086; 87186; 99156; 99157; J0290; J0696; J2250; J2543; J3010; J3370; J3490; Q9967; 92523-GN; 92524-GN; C1880; J2310; J7030; J7050